=== PATIENT | male | born 1950 | race Asian ===

== ENCOUNTER 2021-10-31 16:04 | Emergency (ER) | payer MEDICAID ==
[~2021-10-31] VITALS: Ht 165.1 cm; Wt 54.4 kg
--- NOTE | 2021-10-31 16:15 | NUR ---
PATIENT [facility] "INCREASED CONFUSION & AGGRESSION, MORE COMBATIVE THAT USUAL". PATIENT CURRENTLY STABLE ON RA. NOT COOPERATIVE DURING CONVERSATION. PLACED ON MONITOR. AWAITING TO BE SEEN BY MD. WILL CONTINUE TO MONITOR
[2021-10-31] MEDS ORDERED: BISA10SU11 RC (17:01)
[2021-10-31] MEDS ORDERED: LORA-258 PO (17:01)
[2021-10-31] MEDS ORDERED: HYOS0.1273 PO (17:01)
[2021-10-31] MEDS ORDERED: PROC25SU29 RC (17:01)
[2021-10-31] MEDS ORDERED: MAGN400O6 PO (17:01)
[2021-10-31] MEDS ORDERED: ACET-868 PO (17:01)
[2021-10-31] MEDS ORDERED: DOCU-141 PO (17:01)
[2021-10-31] MEDS ORDERED: MULT-24 PO (17:01)
[2021-10-31] MEDS ORDERED: CHOL100043 PO (17:01)
[2021-10-31] MEDS ORDERED: TRAM50TA2 PO (17:01)
--- NOTE | 2021-10-31 19:04 | NUR ---
PATIENT INCREASINGLY MORE AGGRESSIVE AND COMBATIVE. REFUSING TREATMENTS AND BLOOD DRAW. MD NOTIFIED.
[2021-10-31] MEDS ORDERED: LORAZEPAM INJ 2 MG/ML VIAL IM ONE (19:30)
[2021-10-31] MEDS ORDERED: LORAZEPAM INJ 2 MG/ML VIAL ONE (19:44)
[2021-10-31 19:51] LABS: BASOPHILS % (AUTO) 0.3 % (0.0-2.0); EOSINOPHILS % (AUTO) 3.8 % (0.0-6.0); HEMATOCRIT 42 % (39-51); HEMOGLOBIN 13.7 g/dL (13.5-17.5); LYMPHOCYTES # (AUTO) 2.4 K/uL (0.8-4.8); LYMPHOCYTES % (AUTO) 29.9 % (20.0-44.0); MEAN CORPUSCULAR HGB CONC 33 g/dl (31.0-36.0); MEAN CORPUSCULAR VOLUME 106 fL (80-96); MONOCYTES # (AUTO) 0.6 K/uL (0.1-1.30); MONOCYTES % (AUTO) 7.3 % (2.0-12.0); NEUTROPHILS # (AUTO) 4.7 K/uL (1.8-8.9); NEUTROPHILS % (AUTO) 58.7 % (43.0-81.0); PLATELET COUNT (AUTO) 268 K/uL (150-450); RED BLOOD CELL COUNT(AUTO) 3.97 MIL/uL (4.5-6.0)
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
[2021-10-31 20:01] LABS: ALANINE AMINOTRANSFERASE 20 U/L (12-78); ALBUMIN 3.4 g/dL (3.4-5.0); ALCOHOL, BLOOD < 3 mg/dL (0-0); ALKALINE PHOSPHATASE 68 U/L (46-116); ASPARTATE AMINOTRANSFERASE 41 U/L (15-37); BILIRUBIN,TOTAL 0.4 mg/dL (0.2-1.0); CALCIUM, SERUM 9.5 mg/dL (8.5-10.1); CARBON DIOXIDE 26 mmol/L (21-32); CHLORIDE 105 mmol/L (98-107); CREATININE 1.7 mg/dL (0.6-1.3); GLUCOSE 134 mg/dL (74-106); SODIUM SERUM 143 mmol/L (136-145); TOTAL PROTEIN, SERUM 8.1 g/dL (6.4-8.2); UREA NITROGEN, BLOOD 33 mg/dL (7-18)
[2021-10-31 20:10] LABS: POTASSIUM 6.8 mmol/L (3.5-5.1)
[2021-10-31 20:11] LABS: ACETAMINOPHEN < 2 ug/ml (10-30)
--- NOTE | 2021-10-31 21:28 | NUR ---
PTS AGITATION DECREASED, FOOD AND DRINK PROVIDED. WILL CONTINUE TO MONITOR
[2021-10-31] MEDS ORDERED: LIDOCAINE 2% JEL UROJET 10 ML MM ONE (22:47)
--- NOTE | 2021-10-31 22:57 | NUR ---
COVID SWAB COLLECTED AND SENT TO LAB
--- NOTE | 2021-10-31 22:58 | NUR ---
URINE SAMPLE COLLECTED AND SENT TO LAB
[2021-11-01 00:22] LABS: BILIRUBIN,URINE NEGATIVE (NEGATIVE); COLOR,URINE YELLOW (YELLOW); LEUKOCYTE ESTERASE ,URINE NEGATIVE (NEGATIVE); NITRITE, URINE NEGATIVE (NEGATIVE); PROTEIN,URINE 100 mg/dl (NEGATIVE); UGLUCOSE 250 MG/DL mg/dL (NEGATIVE); UROBILINOGEN,URINE 0.2 EU/dL (0.2)
[2021-11-01 00:31] LABS: BACTERIA,URINE Rare /HPF (None Seen); SQUAMOUS EPITHELIAL CELL,UR None Seen /HPF (None Seen); WBC,URINE 0-2 /HPF (0-3)
--- NOTE | 2021-11-01 01:10 | NUR ---
Juan MARTEL at bed side for psych eval
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
--- NOTE | 2021-11-01 02:11 | NUR ---
[facility] AT PT'S BEDSIDE TO DC PT TO [facility]
[2021-11-01 02:44] VITALS: BP 136/70
== END 2021-11-01 02:44 ==
LOC: ER 16:06
DX: G30.1 Alzheimer's disease with late onset (principal); F02.81 Dementia in other diseases classified elsewhere, unspecified severity, with behavioral disturbance; J44.9 Chronic obstructive pulmonary disease, unspecified; E11.22 Type 2 diabetes mellitus with diabetic chronic kidney disease; N18.9 Chronic kidney disease, unspecified; F20.9 Schizophrenia, unspecified; Z20.822 Contact with and (suspected) exposure to COVID-19
CPT/HCPCS: 99285; 96372; 93005; 85025; 80048; 80076; 84132; 81003; 36415; 87081; 80143; 80320; 81001; 87426; 80307; J2060; J3490; C9803; G0480